=== PATIENT | female | born 1950 | race Caucasian/White ===

== ENCOUNTER 2018-04-12 05:23 | Emergency (ER) | payer OTHER ==
[~2018-04-12] VITALS: Ht 167.6 cm; Wt 67.1 kg
[2018-04-12] MEDS ORDERED: ALENDRONATE SOD70 MG PO (05:33)
[2018-04-12] MEDS ORDERED: VIT C-ROSE HIP500 MG PO (05:33)
[2018-04-12] MEDS ORDERED: SINEMET 10-1001 EAC1 PO (05:34)
[2018-04-12] MEDS ORDERED: CARDIZEM CD240 MG PO (05:35)
[2018-04-12] MEDS ORDERED: CLONAZEPAM 0.50.5 M1 PO (05:35)
[2018-04-12] MEDS ORDERED: TOPROL XL25 MG PO (05:36)
[2018-04-12] MEDS ORDERED: REQUIP 0.25 M0.25 MG PO (05:37)
[2018-04-12] MEDS ORDERED: NIACIN 100MG T100 M1 PO (05:37)
[2018-04-12 07:00] LABS: ABSOLUTE NEUTROPHILS 5.3 thou/uL (1.4-8.2); BASOPHILS 0.6 % (0.0-2.0); EOSINOPHILS 0.9 % (0.0-3.0); HEMATOCRIT 39.8 % (37.0-47.0); HEMOGLOBIN 13.6 gm/dL (12.0-15.0); LYMPHOCYTES 17.3 % (24.0-44.0); MCH 31.5 pg (26.0-34.0); MCHC 34.1 g/dL (28.0-37.0); MCV 92.3 fL (80.0-100.0); MONOCYTES 7.8 % (1.0-8.0); PLATELET COUNT 193 thou/uL (150-400); POLYS 73.4 % (36.0-66.0); RBC 4.31 mil/uL (4.20-5.00); RDW 14.5 % (10.5-14.5); WBC 7.1 thou/uL (4.0-11.0)
[2018-04-12 07:07] LABS: ANION GAP 7 mmol/L (7-16); BUN 12 mg/dL (7-18); CALCIUM 9.2 mg/dL (8.5-10.1); CHLORIDE 105 mmol/L (98-107); CO2 28 mmol/L (21-32); CREATININE 0.7 mg/dL (0.6-1.0); GLUCOSE 111 mg/dL (74-106); POTASSIUM 3.7 mmol/L (3.5-5.1); SODIUM 140 mmol/L (136-145)
[2018-04-12 07:16] LABS: ALBUMIN 3.7 g/dL (3.4-5.0); SGOT 14 U/L (15-37); SGPT 20 U/L (30-65); TOTAL BILIRUBIN 0.6 mg/dL (<0.1-1.0); TOTAL PROTEIN 7.1 g/dL (6.4-8.2); TROPONIN-I <0.06 ng/mL (<0.06)
--- NOTE | 2018-04-12 08:46 | EKG ---
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
[2018-04-12 09:29] VITALS: BP 156/55
== END 2018-04-12 09:31 | disposition home or self-care (01) ==
LOC: ER 05:23
PROVIDERS: Student in an Organized Health Care Education/Training Program
DX: R06.00 Dyspnea, unspecified (principal); R06.02 Shortness of breath